=== PATIENT | female | born 1995 | race Two or more races ===

== ENCOUNTER 2017-06-05 12:07 | Inpatient (IN) | payer MEDICAID ==
[~2017-06-05] VITALS: Ht 167.6 cm; Wt 71.8 kg
--- NOTE | ~2017-06-05 | OR ---
PATIENT'S NAME: ANGIE MUHAMMAD [facility] AGE: 21 Y [address] ROOM: [address] [address] LOCATION: [facility] ADMIT DATE: 06/05/2017 OR/Procedure Report DISCHARGE DATE: FAMILY PHYSICIAN: PHYSICIAN, UNKNOWN ATTENDING PHYSICIAN: Keyon Raphael SURGEON: Keyon Raphael MD POTATO PICKER: Seamus Camacho MD DATE OF PROCEDURE: 06/05/2017 PREOPERATIVE DIAGNOSES: 1. 26 weeks 6-day intrauterine . 2. distress. 3. Probable placental abruption. POSTOPERATIVE DIAGNOSES: 1. 26 weeks 6-day intrauterine demise. 2. Placental abruption. ANESTHESIA: General endotracheal anesthesia. ESTIMATED BLOOD LOSS: 400 mL. CLINICAL INDICATION: Angie Muhammad is a 21-year-old female, 2, para 1, at 26 week, 6 day intrauterine . She presented to the office with a 3-day history of absent movement. Ultrasound was performed, showed a heart rate of 103 beats per minute with absent end-diastolic umbilical artery blood flow. She was sent to [facility] whereupon she was noted to have a heart rate of 62 and insufficient cardiac contractile strength to elicit an umbilical artery pulse. She was then taken to an emergency . FINDINGS: Delivery of a nonviable female infant. score 0 at 1 minute and 0 at 5 minutes. weight was 1 pound 10 ounces. umbilical arterial cord blood gas is pending at the time of dictation. TECHNICAL PROCEDURE: The patient was taken to the operating room, placed in a supine position with right hip roll, prepped and draped in the usual fashion, given general endotracheal tube anesthesia via rapid sequence induction with good results. A vertical midline skin incision was made with a scalpel. Subcutaneous tissue was dissected sharply. Fascial incision was then incised sharply in the midline. Rectus muscles and peritoneum were incised vertically in the midline using sharp dissection. Bladder flap was created. Myometrium was incised with a scalpel. Endometrial cavity was entered bluntly. Uterine incision was performed bluntly. A transverse uterine incision was performed. Amniotomy revealed thick meconium-stained amniotic fluid. Both feet were PATIENT'S NAME: ANGIE MUHAMMAD [facility] AGE: 21 Y [address] ROOM: [address] [address] LOCATION: [facility] ADMIT DATE: 06/05/2017 OR/Procedure Report DISCHARGE DATE: FAMILY PHYSICIAN: PHYSICIAN, UNKNOWN ATTENDING PHYSICIAN: Keyon Raphael grabbed and the breech extraction was performed. The umbilical cord was doubly clamped, the intervening segments cut. Infant was handed off to the awaiting content director. umbilical arterial cord blood and venous cord blood were obtained for blood gas analysis and routine studies respectively. Placenta delivered manually intact with 3 vessels. The placental abruption and hematoma were confirmed. The uterine incision was closed with running continually locking stitch of 0 chromic suture followed by a 2nd imbricating layer consisting of running continuous stitch of 0 chromic suture. Good hemostasis was obtained. Bladder flap was closed with running continuous stitch of 2-0 Vicryl suture. Abdomen was inspected. Any blood or blood clots were retrieved. Tubes and ovaries were normal bilaterally. Abdominal peritoneum was closed with running continuous stitch of 2-0 Vicryl suture. Fascial incision was closed with 2 running continuous stitches of 0 Vicryl suture tying in the midline. The subcutaneous tissue reapproximated using a running continuous subcuticular stitch of 4-0 Vicryl suture. Sponge, needle, and instrument counts were correct. The patient tolerated the procedure well and was taken to recovery room in good condition. MD MARCELLO GASPAR/steven /[id number] d: 06/05/17 2154 t: 06/06/17 1843, OPERATIVE SUMMARY
[2017-06-05] MEDS ORDERED: PRENATAL 1+1)(P1 TAB PO (14:07)
[2017-06-05 14:12] LABS: PCO2 105 mmHg (35-45)
[2017-06-05 14:13] LABS: BICARBONATE 17.1 mmol/L (18.0-23.0); PO2 22 mmHg (80-90)
[2017-06-05 14:16] LABS: ALBUMIN 2.7 gm/dL (3.5-5.0); ALK PHOS 148 IU/L (33-138); ALT 27 IU/L (12-78); ANION GAP 13.4 (10.0-19.0); AST 28 IU/L (10-40); BLOOD UREA NITROGEN 12 mg/dL (6-24); CALCIUM 8.7 mg/dL (8.5-10.5); CHLORIDE 107 mMol/L (96-110); CO2 23 mMol/L (22-32); CREATININE 0.9 mg/dL (0.5-1.1); POTASSIUM 4.4 mEq/L (3.7-5.1); SODIUM 139 mEq/L (135-145); TOTAL BILIRUBIN 0.8 mg/dL (0.0-1.5); TOTAL PROTEIN 5.7 g/dL (6.0-8.4)
[2017-06-05 15:03] LABS: BASOPHIL % 0.1 %; EOSINOPHIL % 0.3 %; HEMATOCRIT 39.4 % (33.0-46.0); HEMOGLOBIN 14.6 g/dL (11.0-15.0); IMMATURE GRANULOCYTE # 0.1 K/uL (0.0-0.3); IMMATURE GRANULOCYTE % 1.1 %; LYMPHOCYTE % 13.9 %; MCH 31.9 pg (27.0-34.0); MCHC 37.1 gm/dL (32.0-36.5); MCV 86.2 fl (83.0-98.0); MONOCYTE # 0.3 K/uL (0.0-1.0); MPV 10.9 fl (9.4-12.4); NEUTROPHIL % 80.6 %; NRBC % 0 /100WBC (0-0.00); PLATELET COUNT 76 K/uL (150-450); RBC 4.57 M/uL (3.50-5.00); RDW-CV 13.2 % (11.9-14.6); WBC 7.5 K/uL (4.0-11.0)
--- NOTE | 2017-06-05 15:35 | NUR ---
[place]hing call for code blue to the OB floor so I responed to see if I could be of assistance to family. Patient was in the OB surgical suite with doctors and nurses. Assisted other staff with trying to locate a number to contact the FOB Kade. Was able to contact his place of employment at [employer]. They provided me with Jose cell phone number [phone]. I attempted to reach him at that number, but another gentleman answered and stated he did not know who Kade is. A short time later, Garcia employer called back to the OB floor and asked to talk with me. I spoke to her on the phone and she states that she had Kade in her office. His cell phone is not working so they found him on site. I briefly spoke to him on the phone and introduced myself. I spoke to Dr Burr and Kade's mom was in the room so she came out and spoke to him on the phone. I met with patient briefly. Introduced myself and explained to her that I will be there to offer emotional supports to her and aKde. Will assist with discharge planning when it is time.
[2017-06-05 18:55] LABS: ALBUMIN 2.3 gm/dL (3.5-5.0); ALK PHOS 125 IU/L (33-138); ALT 26 IU/L (12-78); ANION GAP 14.3 (10.0-19.0); AST 39 IU/L (10-40); BLOOD UREA NITROGEN 9 mg/dL (6-24); CHLORIDE 106 mMol/L (96-110); CO2 22 mMol/L (22-32); CREATININE 0.8 mg/dL (0.5-1.1); POTASSIUM 4.3 mMol/L (3.7-5.1); SODIUM 138 mMol/L (135-145); TOTAL BILIRUBIN 0.7 mg/dL (0.0-1.5); TOTAL PROTEIN 5.3 g/dL (6.0-8.4)
--- NOTE | 2017-06-06 05:39 | NUR ---
Last BP 130/91, Mag at 1g/hr, baby in room, Perc due at 0630, Ancef and Toradol doses complete, D5 1/2 running in L forearm, saline lock in R hand, DTRs 1+, incision dry and intact
[2017-06-06 06:45] LABS: EOSINOPHIL % 0.3 %; HEMATOCRIT 35.7 % (33.0-46.0); HEMOGLOBIN 12.8 g/dL (11.0-15.0); IMMATURE GRANULOCYTE % 0.5 %; LYMPHOCYTE # 1.5 K/uL (0.8-4.0); LYMPHOCYTE % 24.4 %; MCH 31.1 pg (27.0-34.0); MCHC 35.9 gm/dL (32.0-36.5); MCV 86.9 fl (83.0-98.0); MONOCYTE # 0.4 K/uL (0.0-1.0); MONOCYTE % 5.8 %; MPV 10.3 fl (9.4-12.4); NEUTROPHIL # (ANC) 4.3 K/uL (1.8-7.8); NRBC % 0 /100WBC (0-0.00); PLATELET COUNT 66 K/uL (150-450); RBC 4.11 M/uL (3.50-5.00); RDW-CV 13.2 % (11.9-14.6); WBC 6.2 K/uL (4.0-11.0)
[2017-06-06 07:01] LABS: ALK PHOS 116 IU/L (33-138); ALT 24 IU/L (12-78); ANION GAP 11.8 (10.0-19.0); AST 39 IU/L (10-40); BLOOD UREA NITROGEN 8 mg/dL (6-24); CHLORIDE 104 mMol/L (96-110); CO2 24 mMol/L (22-32); CREATININE 0.9 mg/dL (0.5-1.1); POTASSIUM 3.8 mMol/L (3.7-5.1); SODIUM 136 mMol/L (135-145)
[2017-06-06 07:02] LABS: CALCIUM 6.9 mg/dL (8.5-10.5); TOTAL BILIRUBIN 0.4 mg/dL (0.0-1.5); TOTAL PROTEIN 4.8 g/dL (6.0-8.4)
--- NOTE | 2017-06-06 17:09 | NUR ---
Met with patient and significant other Edward at bedside today. Offered my condolences to the two of them. Angie states her daughter is back from [place] and came to see her at the hospital this morning. Patient continues to be very tearful and emotional over the loss of this baby. I suggested to both her and Edward that they may need to seek out some counseling for themselves to deal with this loss. I reviewed the signs and symptoms of depression with them and encouraged them to watch for these and seek out supports if necessary. Patient may discharge tomorrow depending on her blood pressures. I will continue to follow and offer supports.
--- NOTE | 2017-06-07 05:33 | NUR ---
VSS, fundus firm, 1 down, scant flow, needs MMR today, Perc and Motdino at 2240, Sid at 2249
[2017-06-07] MEDS ORDERED: MOTRIN800 MG PO (09:39)
[2017-06-07] MEDS ORDERED: PERCOCET 5-3251 EACH PO (09:39)
== END 2017-06-07 11:17 | disposition disaster alternative care site (69) | DRG 765 ==
LOC: GOBS 12:07
PROVIDERS: ADMIT Obstetrics & Gynecology
PROC: 10D00Z1 Extraction of Products of Conception, Low, Open Approach (ICD-10-PCS; principal; 2017-06-05)
DX: O45.92 Premature separation of placenta, unspecified, second trimester (principal); O36.4XX0 Maternal care for intrauterine death, not applicable or unspecified; D69.3 Immune thrombocytopenic purpura; O99.12 Other diseases of the blood and blood-forming organs and certain disorders involving the immune mechanism complicating childbirth; O77.0 Labor and delivery complicated by meconium in amniotic fluid; O32.1XX0 Maternal care for breech presentation, not applicable or unspecified; O14.94 Unspecified pre-eclampsia, complicating childbirth; Z3A.26 26 weeks gestation of pregnancy; Z37.1 Single stillbirth
CPT/HCPCS: J0610; J0690; J1885; J2270; J3010; J3475

== ENCOUNTER → 2017-06-26 | Outpatient (CLI) | payer MEDICAID ==
[~2017-06-26] MED LIST: MOTRIN800 MG PO; PERCOCET 5-3251 EACH PO; PRENATAL 1+1)(P1 TAB PO
== END | disposition disaster alternative care site (69) ==
LOC: GRAD 09:21
DX: N63 Unspecified lump in breast (principal)